=== PATIENT | female | born 1985 ===

== ENCOUNTER 2017-03-21 15:41 | Inpatient (IN) ==
[2017-03-21] MEDS ORDERED: ONDANSETRON 4 MG/2 ML VIAL IV PRN (15:56)
[2017-03-21] MEDS ORDERED: ACETAMINOPHEN 325 MG TABLET PO PRN (15:56)
[2017-03-21] MEDS ORDERED: LACTATED RINGERS 1,000 ML IV SCH (16:00)
[2017-03-21] MEDS ORDERED: LABETALOL 200 MG TABLET PO SCH (16:05)
[2017-03-21 16:25] LABS: Basophils % 0.2 % (0.0-0.8); Eosinophils % 0.2 % (0.00-10.9); Hematocrit 34.1 VOL% (35.7-47.0); Immature Granulocytes % 0.4 %; Immature Granulocytes Absolute 0.03 #; Lymphocytes % 24.1 % (21.3-54.2); Mean Corpuscular HGB Conc 35.2 GM/DL (32-36); Mean Corpuscular Hemoglobin 32 PG (27-34); Mean Corpuscular Volume 91.4 FL (87-102); Mean Platelet Volume 10.5 FL (9.6-12.0); Monocytes # 0.6 10*3/uL (0.11-0.8); Monocytes % 6.7 % (1.7-12.7); Neutrophils # 5.6 10*3/uL (1.4-7.4); Neutrophils % 68.4 % (38.7-73.9); Platelet Count 217 T/CUMM (130-400); Red Blood Count 3.73 MC/CUMM (3.8-5.5); Red Cell Distribution Width 12.6 % (9.3-17.3); White Blood Count 8.2 T/CUMM (4-12)
[2017-03-21] MEDS: LABETALOL 100 MG TABLET PO SCH ×2 (16:30→21:38)
[2017-03-21 16:36] LABS: INR 0.9; PT Patient Result 9.4 SECS; Partial Thromboplastin Time 27.8 SECS (0-40)
[2017-03-21 16:46] LABS: Alanine Aminotransferase 13 U/L (13-56); Albumin 2.1 G/DL (3.4-5.0); Alkaline Phosphatase 144 U/L (45-117); Aspartate Amino Transferase 20 U/L (0-37); Bilirubin,Total < 0.39 MG/DL (0.2-1.0); Blood Urea Nitrogen 8 MG/DL (7-18); Calcium 8.5 MG/DL (8.5-10.1); Glucose 94 MG/DL (74-106); Osmolality,Calculated 274.5 MOS/KG (273-304); Potassium 4.2 MMOL/L (3.5-5.1); Sodium 139 MMOL/L (136-145); Total Protein 6.2 G/DL (6.4-8.3)
[2017-03-21] MEDS ORDERED: hydrALAZINE 20 MG/1 ML VIAL IV ONE (17:17)
[2017-03-21] MEDS ORDERED: INSULIN REGULAR 100 UNIT/ML SUBCUT ONE (21:00)
[2017-03-21] MEDS ORDERED: INSULIN NPH 100 UNIT/ML SUBCUT SCH (21:00)
[2017-03-22] MEDS ORDERED: INSULIN REGULAR 100 UNIT/ML SUBCUT SCH (07:30)
[2017-03-22] MEDS ORDERED: INSULIN NPH 100 UNIT/ML SUBCUT SCH (07:30)
[2017-03-22] MEDS ORDERED: DEXTROSE 5% LACTATED RINGERS 1,000 ML IV SCH (08:30)
--- NOTE | 2017-03-22 08:57 | OB/GYN History & Physical ---
History of Present Illness Chief complaint: In for evaluation of PIH, GDM, and excessive weight gain. History of present illness: Ms. Mosqueda is a 31 year old female who is a primigravida who presented to the labor department for evaluation. The patient had previously been seen at the office. Her blood pressures were elevated. Also the patient had experienced a 30 pound weight gain within the last 4 weeks. An ultrasound was obtained and demonstrated a macrosomic infant with a possible hydrops. In light of these findings the patient was sent to the labor department for PIH workup and possible primary section due to the above. The risk and benefits of been thoroughly discussed with this patient and significant other, plan of care has been discussed with Dr. Edgar Crespo and all parties are in agreement plan. The patient received her care through the [facility] in the [place] [facility] her course was complicated by diabetes. And recently PIH and size greater than dates. labs: The patient is O+, serology is nonreactive, rubella is immune, hepatitis B negative, HIV negative, GBS culture status unknown. Review of systems is negative with exception of above. Home Medications Medication Instructions Recorded Confirmed Type No122/Iron/Folic Acid 1 tablet PO DAILY 02/07/17 03/21/17 History [ Multi Tablet] Insulin Regular, Human [Novolin R] 15 units SUBCUT BID 02/14/17 03/21/17 History Insulin NPH [HumuLIN N] 20 units SUBCUT BID 03/14/17 03/21/17 History Allergies Allergy/AdvReac Type Severity Reaction Status Date / Time No Known Allergies Allergy Verified 03/21/17 13:29 12 point system: reviewed and no additional remarkable complaints except as stated (PIH and 30 pound weight gain in 1 month) Medical,Surgical,& Family Hx - Medical History Endocrine: History of: Diabetes Mellitus (IDDM) - Family History Family History: Reports;: Family Cancer, Family Hypertension - Social History Smoking Status: Never smoker Exam ENGINEERING GROUP LEADER - Constitutional Vitals: Vital Signs Temp Pulse Resp BP 03/21/17 20:00 97.2 F L 03/21/17 16:00 97.3 F L 78 19 189/98 General appearance: no acute distress - Antepartum / Post Antepartum Exam Cervix - Dilatation: Closed Effacement: Thick Station: -3 Rupture: Intact Presentation: Vertex Heart Rate: 140s Abdomen obstetrics: Present: bowel sounds normal Vagina: Present: normal moisture Uterus exam: Present: enlarged (Size greater than date) - Respiratory Respiratory exam: Present: clear to auscultation bilaterally - Cardiovascular Cardiovascular exam: Present: regular rate and rhythm - GI/Abdominal GI/Abdominal exam: Present: normal bowel sounds, soft - Extremities Exam Extremities exam: Present: edema - Neurological Exam Neurological exam: Present: alert, oriented X3 - Psychiatric Psychiatric exam: Present: normal affect, normal mood - Skin Skin exam: Present: normal color, abrasion Assessment and Plan (1) Term Status: Acute Assessment and plan: Admit IV fluids Diabetic management 24 hour urine Informed consent for primary section Anticipate delivery of a viable Current Visit: Yes (2) Diabetes Status: Acute Current Visit: Yes (3) induced hypertension Status: Acute Current Visit: Yes Results - Labs CBC & BMP: 03/21/17 16:12 03/21/17 16:12 Quality Measures - VTE Contraindication to Pharmacological VTE Prophylaxis: Clinical assessment deems Pt at low risk, no prophalaxis needed
--- NOTE | 2017-03-22 09:52 | OB/GYN Progress Note ---
Assessment and Plan (1) Type 2 diabetes mellitus affecting in third trimester, antepartum Status: Acute Current Visit: Yes (2) Morbid (severe) obesity due to excess calories Status: Acute Current Visit: Yes (3) induced hypertension Status: Acute Assessment and plan: Plan primary section Current Visit: Yes (4) 38 weeks gestation of Status: Acute Current Visit: Yes PROCESSING MANAGER - PN: Subj Interval history: Pt is comfortable this morning. Spoke with her and SO about what is going on with and the baby. Advised them that delivery is the best course of action given her significant weight gain and elevated BP. Pt is a Type 2 diabetic. Diabetes is not well controlled given that her u/s yesterday shows that the baby is > 90% and her most recent HgbA1C was 7.9. C section is the best course of action given macrosomia and the fact that her cervix is closed and that she is has extreme central morbid obesity. Those factors indicate lack of success with successful IOL. Additionally explained that it will be IMPERATIVE that she actually work at keeping her sugars under control after delivery to avoid wound dehiscence. Explained that her panniculus and uncontrolled DM make a significant risk of this. Routine R/B/A to surgery also reviewed. Pt verbalized understanding and is willing to proceed Exam PROCESSING MANAGER - Constitutional Vitals: Vital Signs Temp Pulse Resp BP 03/21/17 20:00 97.2 F L 03/21/17 16:00 97.3 F L 78 19 189/98 General appearance: no acute distress, morbidly obese - Head Head exam: Present: normal inspection, normocephalic - Eye Eye exam: Present: EOMI Pupils: Present: MANUEL - GI/Abdominal GI/Abdominal exam: Present: soft, other (Significant central obesity. FHTs reassuring) Results - Labs CBC & BMP: 03/21/17 16:12 03/21/17 16:12
[2017-03-22] MEDS: LABETALOL 100 MG TABLET PO SCH (10:00)
[2017-03-22] MEDS ORDERED: FAMOTIDINE 20 MG/2 ML VIAL IV ONE (10:06)
[2017-03-22] MEDS ORDERED: CITRIC ACID/SODIUM CITRATE 30 ML UDCUP PO ONE (10:06)
[2017-03-22] MEDS ORDERED: ceFAZolin 2,000 MG in SODIUM CHLORIDE 0.9% 100 ML IV ONE (10:06)
[2017-03-22] MEDS ORDERED: LACTATED RINGERS 1,000 ML IV ONE (10:30)
[2017-03-22] MEDS ORDERED: LACTATED RINGERS 1,000 ML IV SCH (10:30)
[2017-03-22] MEDS ORDERED: OXYTOCIN/LR 20 UNIT/1,000 ML BAG IV ONE (10:41)
[2017-03-22] MEDS ORDERED: ONDANSETRON 4 MG/2 ML VIAL ONE (11:18)
[2017-03-22] MEDS ORDERED: PROPOFOL 200 MG/20 ML VIAL IV ONE (11:18)
[2017-03-22] MEDS ORDERED: OXYTOCIN 10 UNIT/ML VIAL ONE (11:57)
[2017-03-22] MEDS ORDERED: GLUCAGON 1 MG VIAL IM PRN (12:35)
[2017-03-22] MEDS ORDERED: DEXTROSE 50% 25 GM/50 ML VIAL IV PRN (12:35)
--- NOTE | 2017-03-22 12:45 | Operative Note ---
Date of procedure: 03/22/17 Pre-op diagnosis: 1. 38+ wks 2. Poorly controlled Type 2 DM 3. PIH 4. Extreme Morbid Obesity Post-op diagnosis: same Procedure: PRIMARY Pt taken to the OR. Transferred from cart to the exam table. Spinal anesthesia with Duramorph placed and found to be adequate. Prepped and draped in sterile fashion with membreno in her bladder. Traxis retractor placed prior to prep Incision made 2 FBs above symphysis pubis. Carried down to underlying fascia sharply. Fascia scored in the midline and incision extended to either side with Meeks scissors. Giles clamps placed superiorly and rectus dissected away. Similar procedure inferiorly taking care to avoid the bladder. Peritoneum entered sharply and incision extended bluntly and sharply. Waldo XL retrator placed. Bladder flap created sharply. Uterus opened with knife and incision extended bluntly. Copious amounts of clear amniotic fluid. VERY large female delivered who was vigorous and crying. Waited 45 seconds before cord clamping. 4 areas of uterus clamped with Sandhya [place]. Francois clamps while waiting. Cord then clamped and cut. handed off to the awaiting NICU team. Placenta delivered without issue. Uterus cleared of clots and debris. Closed in 2 layers with vicryl suture. Pelvis copiously irrigated. Normal uterus, tubes and ovaries. Female infant in cephalic presentation. 12 lbs 3 oz with APGARS of 8/9 Fascia closed with two vicryl sutures from either side to midline. Subcutaneous tissue closed with 2.0 plain. Skin closed with Insorb traci. Sponge, lap and needle counts correct x 2. Pt taken to recovery in stable condition. Anesthesia: regional Surgeon / Physician: Lulu Centeno Felting Machine Operator: Geovanna Sarmiento Estimated blood loss: other (600 cc) Specimens: none sent Condition: stable Disposition: PACU Results - Labs CBC & BMP: 03/21/17 16:12 03/21/17 16:12 Discharge Plan - Discharge Medications No Action No122/Iron/Folic Acid [ Multi Tablet] 1 tablet PO DAILY Insulin Regular, Human [Novolin R] 15 units SUBCUT BID Insulin NPH [HumuLIN N] 20 units SUBCUT BID - Follow Up or Referral - Forms/Instructions
[2017-03-22] MEDS ORDERED: RHO(D) IMMUNE GLOBULIN 300 MCG SYRINGE IM ONE (12:50)
[2017-03-22] MEDS ORDERED: MORPHINE 10 MG/10 ML VIAL ONE (12:50)
[2017-03-22] MEDS ORDERED: MAGNESIUM SULF DRIP 40 GM/1,000 ML ML IV SCH (12:50)
[2017-03-22] MEDS ORDERED: MIDAZOLAM 2 MG/2 ML VIAL ONE (12:50)
[2017-03-22] MEDS ORDERED: ePHEDrine 50 MG/ML AMP ONE (12:50)
[2017-03-22] MEDS ORDERED: MAGNESIUM SULF RIDER 100 ML IV ONE (12:51)
[2017-03-22] MEDS ORDERED: HYDROmorphone 2 MG/1 ML VIAL IV PRN (15:14)
[2017-03-22] MEDS ORDERED: hydrOXYzine HCL 25 MG/1 ML VIAL IM PRN (15:14)
[2017-03-22] MEDS ORDERED: diphenhydrAMINE 50 MG/1 ML VIAL IV PRN (15:14)
[2017-03-22] MEDS: LACTATED RINGERS 1,000 ML IV SCH (15:44)
[2017-03-22] MEDS: DOCUSATE SODIUM 100 MG CAPSULE PO SCH (21:54)
[2017-03-23] MEDS: INSULIN REGULAR 100 UNIT/ML SUBCUT SCH ×7 (00:54→18:50)
[2017-03-23] MEDS: LACTATED RINGERS 1,000 ML IV SCH (04:37)
[2017-03-23 04:49] LABS: Basophils % 0.3 % (0.0-0.8); Eosinophils % 0.1 % (0.00-10.9); Immature Granulocytes % 0.5 %; Immature Granulocytes Absolute 0.06 #; Lymphocytes # 1.7 10*3/uL (1.4-4.0); Lymphocytes % 14.3 % (21.3-54.2); Mean Corpuscular HGB Conc 34.3 GM/DL (32-36); Mean Corpuscular Hemoglobin 32 PG (27-34); Mean Corpuscular Volume 92.8 FL (87-102); Mean Platelet Volume 10.4 FL (9.6-12.0); Monocytes # 0.6 10*3/uL (0.11-0.8); Neutrophils # 9.3 10*3/uL (1.4-7.4); Neutrophils % 79.8 % (38.7-73.9); Platelet Count 211 T/CUMM (130-400); Red Blood Count 3.77 MC/CUMM (3.8-5.5); Red Cell Distribution Width 12.5 % (9.3-17.3); White Blood Count 11.7 T/CUMM (4-12)
[2017-03-23] MEDS: MULTIVITAMIN (PRENATAL) TABLET PO SCH (09:00)
[2017-03-23] MEDS: DOCUSATE SODIUM 100 MG CAPSULE PO SCH ×2 (09:01→21:59)
[2017-03-23] MEDS: INSULIN NPH 100 UNIT/ML SUBCUT SCH ×2 (10:58→16:35)
[2017-03-23] MEDS: IBUPROFEN 800 MG TABLET PO SCH ×2 (11:00→16:04)
--- NOTE | 2017-03-23 12:06 | OB/GYN Progress Note ---
Assessment and Plan (1) Type 2 diabetes mellitus affecting in third trimester, antepartum Status: Acute Current Visit: Yes (2) Morbid (severe) obesity due to excess calories Status: Acute Current Visit: Yes (3) induced hypertension Status: Acute Assessment and plan: Plan primary section Current Visit: Yes (4) 38 weeks gestation of Status: Acute Current Visit: Yes (5) S/P primary low transverse Status: Acute Assessment and plan: POD#1 s/p primary section for PIH s/p Magnesim therapy. Urine output great. BP look good this morning. Continue procardia BS look good as well. Restart insulin regimen. Again reinforced with the patient making the right food choices to maintain good BS for her health and good wound healing. Encourage ambulation today. 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 States that she "did not expect my baby to weigh 12 lbs". "Does my baby have diabetes?". Conversation about her lack of control of her diabetes allowed the baby to grow to that size and have these complications. Further explained that she does not have DM now but issues controlling her sugar. However, she is at significant risk of DM later in life as a result of this. Explained to her that she can help prevent it by doing a good job of taking better care of herself by eating better, making the right choices, exercising and teaching her child those habits. Questioned her about whether she would benefit from nutrition counseling, she is amenable. Exam AUTOMATED CUTTING MACHINE OPERATOR - Constitutional Vitals: Vital Signs Pulse Resp BP 03/23/17 11:00 18 03/23/17 09:00 18 03/23/17 07:54 18 03/23/17 07:00 18 03/22/17 18:00 20 03/22/17 17:35 63 20 187/89 03/22/17 17:00 20 03/22/17 16:35 60 20 178/93 03/22/17 15:35 66 20 158/93 General appearance: no acute distress, morbidly obese - Head Head exam: Present: normal inspection, normocephalic - Eye Eye exam: Present: EOMI Pupils: Present: MANUEL - GI/Abdominal GI/Abdominal exam: Present: soft, other (Central obesity, incision intact) Results - Labs CBC & BMP: 03/23/17 04:32 03/21/17 16:12
[2017-03-23] MEDS: SIMETHICONE CHEW 80 MG TABLET PO PRN (21:59)
[2017-03-23] MEDS: MAGNESIUM HYDROXIDE SUSP 30 ML UDCUP PO PRN (21:59)
[2017-03-24] MEDS: INSULIN REGULAR 100 UNIT/ML SUBCUT SCH ×8 (00:30→18:45)
[2017-03-24] MEDS: MAGNESIUM HYDROXIDE SUSP 30 ML UDCUP PO PRN ×2 (07:15→20:23)
[2017-03-24] MEDS: IBUPROFEN 800 MG TABLET PO SCH ×3 (07:16→20:24)
[2017-03-24] MEDS: METOCLOPRAMIDE 10 MG TABLET PO SCH ×2 (07:16→15:17)
[2017-03-24] MEDS: INSULIN NPH 100 UNIT/ML SUBCUT SCH ×2 (08:02→17:35)
[2017-03-24] MEDS: MULTIVITAMIN (PRENATAL) TABLET PO SCH (10:55)
[2017-03-24] MEDS: DOCUSATE SODIUM 100 MG CAPSULE PO SCH ×2 (10:56→20:24)
--- NOTE | 2017-03-24 10:58 | OB/GYN Progress Note ---
Assessment and Plan (1) Type 2 diabetes mellitus affecting in third trimester, antepartum Status: Acute Current Visit: Yes (2) Morbid (severe) obesity due to excess calories Status: Acute Current Visit: Yes (3) induced hypertension Status: Acute Assessment and plan: Plan primary section Current Visit: Yes (4) 38 weeks gestation of Status: Acute Current Visit: Yes (5) S/P primary low transverse Status: Acute Assessment and plan: POD#2 s/p primary section for PIH s/p Magnesim therapy. BP up this morning compared to yesterday. Increase Procardia dose to 60. Give an additional 30 this morning BS look good as well. Continue insulin regimen. Again reinforced with the patient making the right food choices to maintain good BS for her health and good wound healing. Encourage ambulation today. Baby still in NICU Current Visit: Yes EMBEDDED PROCESSOR - PN: Subj Interval history: Pt feels sore this morning. Questioning why her BP is elevated. Discussion about PIH and her risk factors (morbid obesity and DM). Questioning what can she do to help in addition to taking mediction. Explained that it is a process of time for the PIH to run its course. Additionally, she is at risk for C HTN because of her obesity and like our discussion yesterday, she needs to make a lifestyle change including diet, exercise and significant weight loss. BS look fairly decent. States that her meeting with the pellet mill operator yesterday went well. Exam EMBEDDED PROCESSOR - Constitutional Vitals: Vital Signs Temp Pulse Resp BP Pulse Ox 03/24/17 07:39 98.6 F 82 20 154/101 96 03/24/17 06:00 77 18 163/92 99 03/24/17 05:00 18 03/24/17 04:00 97.1 F L 66 18 150/80 99 03/24/17 03:00 18 03/24/17 02:00 72 18 148/75 96 03/24/17 01:00 18 03/24/17 00:00 96.3 F L 67 18 124/71 96 03/23/17 22:00 89 18 151/75 96 03/23/17 20:00 97.6 F 87 18 147/86 99 03/23/17 18:00 88 20 137/86 99 03/23/17 16:00 97.3 F L 69 20 133/79 98 03/23/17 15:00 97.8 F 73 20 147/90 99 03/23/17 14:00 18 03/23/17 13:00 18 03/23/17 12:00 18 03/23/17 11:00 18 General appearance: no acute distress, morbidly obese - Head Head exam: Present: normal inspection, normocephalic - Eye Eye exam: Present: EOMI Pupils: Present: MANUEL - GI/Abdominal GI/Abdominal exam: Present: soft, other (incision intact) Results - Labs CBC & BMP: 03/23/17 04:32 03/21/17 16:12
[2017-03-24] MEDS ORDERED: DIPH/TET/ACEL PERT BOOSTER VACCINE 0.5 ML VIAL IM ONE (15:31)
[2017-03-24] MEDS: SIMETHICONE CHEW 80 MG TABLET PO PRN (20:24)
[2017-03-25] MEDS: INSULIN REGULAR 100 UNIT/ML SUBCUT SCH ×2 (00:30→07:51)
[2017-03-25] MEDS: IBUPROFEN 800 MG TABLET PO SCH ×2 (04:02→07:20)
[2017-03-25] MEDS: METOCLOPRAMIDE 10 MG TABLET PO SCH ×2 (06:28→06:30)
[2017-03-25 07:30] VITALS: BP 154/85
[2017-03-25] MEDS: INSULIN NPH 100 UNIT/ML SUBCUT SCH (07:52)
[2017-03-25] MEDS: MULTIVITAMIN (PRENATAL) TABLET PO SCH (08:20)
[2017-03-25] MEDS: DOCUSATE SODIUM 100 MG CAPSULE PO SCH (08:20)
--- NOTE | 2017-03-25 09:25 | Discharge Summary ---
Hospital Course - Hospital Course Hospital Course: Routine post op course. Stable for discharge home. Reinforced need for adherence to diet and limited salt intake. F/u with Dr. Díaz in a week Diagnosis - Discharge Diagnosis (1) Type 2 diabetes mellitus affecting in third trimester, antepartum Status: Acute (2) Morbid (severe) obesity due to excess calories Status: Acute (3) induced hypertension Status: Acute (4) 38 weeks gestation of Status: Acute (5) S/P primary low transverse Status: Acute Specialty Discharge - Follow Up or Referrals Follow up with: Chaz Díaz MD [Physician] - 2 Weeks Discharge Plan - Discharge Data Disposition: Disch To Home/Self Care Condition at Discharge: Stable Discharge Diet: diabetic diet, heart healthy Activity: other (routine post op) Hygiene: may shower Weight Bearing at Discharge: full weight bearing Driving: not for (2 weeks) Contact your physician if you experience:: fever over 101, Difficulty voiding, Redness or swelling - Discharge Medications New Docusate Sodium Cap [Colace Cap] 100 mg PO BID #30 capsule HYDROcodone/ACETAMIN 5-325 [[place]esa 5-325] 2 tablet PO Q6H PRN #20 tablet PRN Reason: Pain Severe (8-10) Ibuprofen Tab [Motrin Tab] 800 mg PO Q8H #30 tablet NIFEdipine XL TAB [Procardia Xl] 90 mg PO DAILY #30 tablet No Action No122/Iron/Folic Acid [ Multi Tablet] 1 tablet PO DAILY Insulin Regular, Human [Novolin R] 15 units SUBCUT BID Insulin NPH [HumuLIN N] 20 units SUBCUT BID - Follow Up or Referral Follow Up: Chaz Díaz MD [Physician] - 2 Weeks - Forms/Instructions Instructions: Section (DC), Depression (GEN), Perineal Care (DC), Bleeding (DC) Exam - Constitutional Vitals: Period Temp Pulse Resp BP Sys/Burrell Pulse Ox Last 24 Hr 96.4 F-98.3 F 83-102 18-20 132-161/69-94 96-100 General appearance: no acute distress, morbidly obese - Head Head exam: Present: normal inspection, normocephalic - Eye Eye exam: Present: EOMI - GI/Abdominal GI/Abdominal exam: Present: other (Incision intact) Discharge Results Labs on day of discharge: Labs from last 24 hours 07/30/17 07/30/17 07/29/17 06:30 00:32 18:40 POC Glucose 73 L 93 200 H 03/24/17 12:10 POC Glucose 95 DS: Provider Date of admission: 03/21/17 15:56 Primary care physician: Soheila Britt MD Attending physician on admission: Chaz Díaz MD Consults: 03/21/17 15:56 Consult to Anesthesiology [CONS] Routine Consulting Provider: Reason for Anesthesiology: Epidural Consult Comment: Epidural for pain managment 03/22/17 10:06 Consult to Anesthesiology [CONS] Routine Consulting Provider: Reason for Anesthesiology: Pre-op Clearance 03/22/17 12:50 Consult to Landing Worker [CONS] Routine Consult Landing Worker: Breast Feeding 03/23/17 13:35 Consult to Diabetes [facility], Educator [CONS] Routine Reason for Manufacturing Plant Technician: Diet Discharging clinician: Lulu Centeno MD
[2017-03-25] MEDS ORDERED: MEASLES/MUMPS/RUBELLA VACCINE 0.5 ML VIAL SUBCUT ONE (10:04)
== END 2017-03-25 11:00 | disposition home or self-care (01) | DRG 540 ==
LOC: N.LDOUT 15:41 → N.LD 15:43 → N.OB 03-23 15:00
PROVIDERS: ADMIT Obstetrics & Gynecology; ATTEND Obstetrics & Gynecology
PROC: LDCSECT (ICD-10-PCS; 2017-03-22 11:00)